=== PATIENT | male | born 1960 | race Caucasian/White ===

== ENCOUNTER 2023-10-06 11:11 | Emergency (ER) | payer OTHER, SELFPAY ==
[2023-10-06 11:19] VITALS: BP 168/94; BMI 25.8
[2023-10-06 11:57] LABS: % Eosinophils 3.4 % (0-6); % Immature Granulocytes 0.2 % (0-0.5); % Lymphocytes 18.9 % (20.5-51.1); % Monocytes 6.9 % (1.7-9.3); % Neutrophils 69.6 % (42.2-75.2); Absolute Basophils 0.1 10^3/uL (0-0.2); Absolute Eosinophils 0.2 10^3/uL (0-0.7); Absolute Monocytes 0.4 10^3/uL (0.1-0.6); Absolute Neutrophils 3.6 10^3/uL (1.4-6.5); Hematocrit 45.3 % (39.0-52.0); Hemoglobin 15.7 g/dL (13.0-18.0); Mean Corp Hgb Conc. 34.7 g/dL (33.0-37.0); Mean Corpuscular Hgb 29.7 pg (27.0-31.0); Mean Corpuscular Volume 85.8 fL (80.0-94.0); Mean Platelet Volume 9.8 fL (7.4-10.4); Nucleated Red Blood Cells % 0 % (-); Platelet Count 182 10^3/uL (130-400); Red Blood Cell Count 5.28 10^6/uL (4.70-6.10); Red Cell Dist. Width 12.8 % (11.5-14.5); White Blood Cell Count 5.2 10^3/uL (4.8-10.8)
[2023-10-06 12:12] LABS: ALT (SGPT) 35 U/L (0-50); AST (SGOT) 43 U/L (17-59); Albumin 4.7 g/dl (3.5-5.0); Alkaline Phosphatase 94 U/L (38-126); Blood Urea Nitrogen 15 mg/dl (9-20); Calcium 10.1 mg/dl (8.4-10.2); Carbon Dioxide 23 mmol/L (22-30); Chloride 105 mmol/L (98-107); Estimated Creatinine Clearance 65 ml/min; Glucose 122 mg/dl (70-99); Potassium 4.5 mmol/L (3.5-5.1); Sodium 137 mmol/L (135-145); Total Bilirubin 0.9 mg/dl (0.2-1.3); Total Protein 7.5 g/dl (6.3-8.2); eGFR > 60.00
[2023-10-06 12:23] LABS: Troponin I < 0.012 ng/ml
--- NOTE | 2023-10-06 12:30 | ED.GENMED ---
History of Present Illness
General
Chief Complaint: Breathing Problem
Source: patient
Exam Limitations: none
Time Seen by Provider: 10/06/23 11:36
Nursing documentation reviewed up to this point in time: agreed with
Travel History
Have you had any contact with someone who has COVID-19?: No
Do you have any symptoms of coronavirus? Fever > 100 degrees, chills, cough, shortness of breath, sore throat, loss of taste or smell, muscle aches, or headache?: Yes
Symptoms:: shortness of breath
History of Present Illness
History of Present Illness:
Patient with history of hypertension, CAD, and bladder cancer, presents to ED secondary to sudden onset of dizziness, palpitations, shortness of breath and sensation of 'passing out', when he he bent down to change his urostomy bag, in standing
position, which he has done repeatedly in the past. Denies chest pain. Denies nausea or vomiting. Denies diaphoresis. Of note, patient was evaluated at primary care's office 2 weeks ago secondary t 'lightheadedness'. Patient was given meclizine
for possible vertigo. Since then, patient has had intermittent lightheaded sensation. Today, patient also reports mild diffuse headache. Denies fever or chills. Denies coughing. Denies recent illness. Denies recent change in diet. Patient
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 His fatigue sensation has not improved despite stopping metoprolol.
Past History
Past History
ED Past Medical History: CAD, Cancer, HTN, Hypercholesterolemia, [place], Psychiatric and Other
ED Past Surgical History: Appendectomy, Cardiac (PTCA with stent 1995), Urological (L kidney and ureter removed for CA, TURP) and Other (bladder ca)
Patient has exhibited threatening behavior?: No
Social History
Tobacco: Former smoker
Alcohol: None
Drug: Marijuana
Personal:
Living: with family
Employment: Employed
Family History
Family History: Other
Review of Systems
Review of Systems
Allergies reviewed?: Yes
All Other Systems: ROS reviewed and negative except as documented in HPI and ROS
Constitutional: Reports no symptoms
EENT: Reports no symptoms
Respiratory: Reports trouble breathing
Cardiac: Reports palpitations
ABD/GI: Reports no symptoms
: Reports no symptoms
Musculoskeletal: Reports no symptoms
Skin: Reports no symptoms
Neurological: Reports dizzy
Phy Exam
Physical Exam
Physical Exam:
Physical Exam
General: mild distress, not acutely ill. afebrile
Head: nc/at. eomi. horizontal nystagmus noted..
Neck: supple. no meningeal signs.
Heart: s1/s2 regular rate and rhythm, no murmur. equal radial pulses.
Lungs: no acute respiratory distress. clear bilaterally
Abdomen: normal bowel sounds. not tender.
Neuro: alert and oriented. no focal neurological deficits
Skin: no rash
Psychiatric: well kept. interactive and cooperative
Extremities: no edema. no calf tenderness.
Scores
Heart Failure Risk
Heart Failure Risk Score: Not Applicable
Course
Orders/Labs/Results
Orders:
Orders
10/06/23 11:19
Electrocardiogram (*1) Urgent
Reason for Study: Chest Pain
EKG- Treatment ONCE
10/06/23 11:24
Complete Blood Count/With Diff Urgent
Comprehensive Metabolic Panel Urgent
Troponin I Urgent
10/06/23 12:25
CT Head W/o Iv Contrast Urgent
Comment:
Reason For Exam: dizziness
10/06/23 12:26
diazePAM [Valium Injection] 2 mg IV NOW STA
10/06/23 12:59
TSH Reflex To Free T4 Urgent
10/06/23 13:55
0.9% Sodium Chloride 250 ml [Nss] 250 ml IV BOLUS
Meclizine [Antivert] 25 mg PO NOW STA
Abnormal Lab Results
10/06/23
11:24
Absolute Lymphs (auto) 1.0 L 10^3/uL
(1.2-3.4)
Lymphocytes % 18.9 L %
(20.5-51.1)
Glucose 122 H mg/dl
(70-99)
10/06/23 11:24
10/06/23 11:24
Vital Signs
Initial and Last Documented VS:
Initial Vital Signs
Temp Pulse Resp BP Pulse Ox
98.2 F 86 16 168/94 100
10/06/23 11:19 10/06/23 11:19 10/06/23 11:19 10/06/23 11:19 10/06/23 11:19
Last Documented Vital Signs
Temp Pulse Resp BP Pulse Ox
98.2 F 67 18 168/94 98
10/06/23 15:24 10/06/23 15:24 10/06/23 15:24 10/06/23 11:19 10/06/23 15:24
MDM/Problems Addressed
MDM/Problems Addressed:
Patient with an unremarkable workup in ED, including blood work, EKG, and a CT head. After treatment, patient reports significant improvement symptoms. Patient is able to ambulate independently with steady gait, without any acute distress. As
such, decision made to discharge patient home, to the care of his family, with recommendation to follow-up with primary care physician and/or referred neurologist for reevaluation. Patient will return to ED with worsening symptoms. Patient will
continue meclizine as needed as an outpatient, but will prescribe short course of Ativan, to be used as needed, on extreme cases, when he feels anxious due to lightheadedness.
*EKG
Interpreted by ED Provider?: Yes
EKG Intrepretation Date: 10/06/23
Interpretation: normal
Heart Rate: 77
Rate: normal
Rhythm: sinus
[place]: normal axis
Interval: normal interval
QRS Pattern: normal QRS
*Critical Care Note
Total Time (30-74mins, 75-104mins- exclusive of procedures): Not Applicable
ED Attending Note
-
Portions of this chart may have been created with voice recognition software.� Occasional wrong word or��sound alike� substitutions may have occurred due to the inherent limitations of voice recognition software.
Discharge Plan
Departure
Patient Disposition: Home (Routine Discharge)
Date of Disposition: 10/06/23
Time of Disposition: 15:20
Patient with high blood pressure during this ER visit?: Yes
Condition: Good
Discharge Problem:
Dizziness
Instructions: Dizziness, Adult ED
Prescriptions:
New
lorazepam [Ativan] 0.5 mg tablet
0.5 mg PO TID PRN (Reason: anxiety) Qty: 10 0RF
meclizine 25 mg tablet
25 mg PO TID PRN (Reason: dizziness) Qty: 20 0RF
No Action
atorvastatin 40 MG tablet
40 mg PO QPM
metoprolol tartrate 25 MG tablet
25 mg PO BID
clonazepam 1 MG tablet
1 mg PO HS
venlafaxine [Effexor XR] 150 MG capsule,extended release 24hr
150 mg PO QPM
albuterol sulfate 1 PUFF HFA aerosol inhaler
2 puff inhalation R Q4HPRN PRN (Reason: SOB)
apixaban [Eliquis] 5 MG tablet
5 mg PO BID Qty: 70 0RF
Rx Instructions:
Take 10mg twice a day for one week, then 5mg twice a day after.
tramadol 50 MG tablet
50 mg PO Q6HPRN PRN (Reason: pain) Qty: 15 0RF
ondansetron 4 MG tablet,disintegrating
4 mg PO TIDPRN PRN (Reason: nausea/vomiting) Qty: 12 0RF
cannabidiol [Epidiolex] 1 UNIT solution
1 unit PO PRN PRN (Reason: pain/anxiety)
levofloxacin [Levaquin] 500 MG tablet
500 mg PO DAILY
Referrals:
Sheron Canchola PA [Family Provider] -
Kel Claire MD [Active] -
Stand Alone Forms: Return to Work
Activity Restrictions/Additional Instructions:
As discussed, please follow-up with your primary care physician and/or referred neurologist for further evaluation and treatment. Please return to ED with worsening symptoms. Your prescription has been sent electronically to [facility] pharmacy in
[place].
Interventions
Interventions:
*Risk Screen - Suicide Last Done: 10/06/23 11:59
*General Assessment Last Done: 10/06/23 11:59
*Neglect/Abuse Screening Last Done: 10/06/23 11:19
ED- Fall Risk Assessment Last Done: 10/06/23 11:59
*ED COVID-19 Vaccine History Last Done: 10/06/23 11:19
*Nursing Disposition Last Done: 10/06/23 15:24
ED- Cardiac Assessment Last Done: 10/06/23 11:59
ED- Pulmonary Assessment Last Done: 10/06/23 11:59
Discharge Date and Time
Discharge Date/Time: 10/06/23 15:25
[2023-10-06] MEDS: VALIUM INJECTION 2 MG IV (13:00)
--- NOTE | 2023-10-06 13:53 | EDRN ---
patient states that dizziness did not improve; Er Doc notified
[2023-10-06 13:54] LABS: TSH Reflex To Free T4 2.51 uIU/ml (0.47-4.68)
[2023-10-06] MEDS: NSS 250 IV (14:21)
[2023-10-06] MEDS: ANTIVERT 25 MG PO (14:22)
== END 2023-10-06 15:25 | disposition home or self-care (01) ==
LOC: EMR 11:11
PROVIDERS: Emergency Medicine; EMERGENCY PHYSICIAN Emergency Medicine; FAMILY PHYSICIAN Physician Assistant Medical
DX: R42 Dizziness and giddiness (principal); I10 Essential (primary) hypertension; I25.10 Atherosclerotic heart disease of native coronary artery without angina pectoris; Z85.51 Personal history of malignant neoplasm of bladder; Z87.891 Personal history of nicotine dependence
CPT/HCPCS: 99285; 96374; 96361; 70450; 80053; 84443; 84484; 85025; 93005

== ENCOUNTER → 2023-10-26 15:40 | Outpatient (REF) | payer OTHER, SELFPAY | LOC: DHCBS MAIN 15:40 | PROVIDERS: ATTENDING PHYSICIAN Internal Medicine Cardiovascular Disease; FAMILY PHYSICIAN Physician Assistant Medical | DX: I25.119 Atherosclerotic heart disease of native coronary artery with unspecified angina pectoris (principal) | CPT/HCPCS: 93306 ==

== ENCOUNTER → 2023-11-02 07:07 | Outpatient (REF) | payer OTHER, SELFPAY | LOC: RCS 07:07 | PROVIDERS: ATTENDING PHYSICIAN Internal Medicine Cardiovascular Disease; FAMILY PHYSICIAN Physician Assistant Medical | DX: I25.119 Atherosclerotic heart disease of native coronary artery with unspecified angina pectoris (principal) | CPT/HCPCS: 78452; 93017; A9500 ==

== ENCOUNTER → 2023-12-20 17:09 | Outpatient (REF) | payer OTHER, SELFPAY | LOC: PAVMRI 17:09 | PROVIDERS: ATTENDING PHYSICIAN Specialist; FAMILY PHYSICIAN Physician Assistant Medical | DX: H93.13 Tinnitus, bilateral (principal) | CPT/HCPCS: 70551 ==

== ENCOUNTER → 2024-01-04 12:33 | Outpatient (REF) | payer OTHER, SELFPAY | LOC: RAD 12:33 | PROVIDERS: ATTENDING PHYSICIAN Physician Assistant Medical | DX: R60.0 Localized edema (principal) | CPT/HCPCS: 93971 ==

== ENCOUNTER 2024-04-12 16:05 | Emergency (ER) | payer OTHER, SELFPAY ==
[2024-04-12 16:07] VITALS: BP 143/83
--- NOTE | 2024-04-12 17:42 | ED.GENMED ---
History of Present Illness
General
Chief Complaint: Male Genito-Urinary Symptoms
Source: patient
Time Seen by Provider: 04/12/24 17:34
History of Present Illness
History of Present Illness:
64-year-old male with past medical history of CAD, hypertension, hyperlipidemia, previous [place], bladder and kidney cancer status post urostomy creation presenting to the emergency department for severe pain overlying the ostomy that radiates towards
his right flank that started gradually yesterday and described to be more mild yesterday but today much more severe. Patient was unable to get to his doctor at [place] and was recommended to come to the ER for further evaluation. He notes no
other associated symptoms with this. Denies any history of similar. He notes that he is still having his normal urostomy output.
Past History
Past History
ED Past Medical History: CAD, Cancer, HTN, Hypercholesterolemia, [place], Psychiatric and Other
ED Past Surgical History: Appendectomy, Cardiac (PTCA with stent 1995), Urological (L kidney and ureter removed for CA, TURP) and Other (bladder ca)
Patient has exhibited threatening behavior?: No
Social History
Tobacco: Former smoker
Alcohol: None
Drug: Marijuana
Personal:
Living: with family
Employment: Employed
Family History
Family History: Other
Review of Systems
Review of Systems
All Other Systems: ROS reviewed and negative except as documented in HPI and ROS
Phy Exam
Physical Exam
Physical Exam:
GENERAL: Alert , in no apparent distress but does appear quite uncomfortable
EYE: clear conjunctiva b/l
HEAD: NCAT
ENT: o/p clr, mmm.
CARDIAC: Regular rate and rhythm .
LUNGS: Clear breath sounds bilaterally, no acute respiratory distress, no wheezes/rales/rhonchi
ABDOMEN: Soft, without focal tenderness, no r/g, no cvat, urostomy appears without any sign of surrounding infection. There is significant tenderness overlying the urostomy and just lateral to this in the right mid abdomen.
NEUROLOGICAL: Alert and oriented
SKIN: Warm and dry, skin intact.
MUSCULOSKELETAL: No edema, well perfused.
PSYCH: Normal and appropriate interaction.
Scores
Heart Failure Risk
Heart Failure Risk Score: Not Applicable
Heart Score for Chest Pain Patients
STEMI patient?: Not applicable
Withdrawal Assessment of Alcohol
Withdrawal Assessment Completed?: Not applicable
Course
Orders/Labs/Results
Orders:
Orders
04/12/24 17:43
CT Abd/pel W Iv And Oral Contr Urgent
Comment:
Reason For Exam: pain at urostomy, radiates to right flank
Iohexol [Omnipaque] See Protocol PO NOW STA
04/12/24 17:48
HYDROmorphone [Dilaudid] 0.5 mg IV NOW STA
04/12/24 18:13
Complete Blood Count/With Diff Urgent
Comprehensive Metabolic Panel Urgent
Lipase Urgent
Urinalysis Reflex To Culture Urgent
Date Specimen was Collected: 04/12/24
Time Specimen was Collected: 18:11
Urine Microscopic Reflex Cult Urgent
Urine Culture Urgent
SHAV[place] Source: U
Specimen Description:
Date Specimen was Collected: 04/12/24
Time Specimen was Collected: 18:11
04/12/24 19:08
HYDROmorphone [Dilaudid] 0.5 mg IV NOW STA
04/12/24 21:41
Ketorolac [Toradol] 30 mg IV NOW STA
Abnormal Lab Results
04/12/24
18:13
Ur Occult Blood Reflex 1+ A
(Negative)
Urine RBC 7-10 A /HPF
(0-2)
Urine WBC (Reflex) 11-15 A /HPF
(0-5)
Urine Bacteria (Reflex) Few A
(Negative)
04/12/24 18:13
04/12/24 18:13
Vital Signs
Initial and Last Documented VS:
Initial Vital Signs
Temp Pulse Resp BP Pulse Ox
97.8 F 70 16 143/83 99
04/12/24 16:07 04/12/24 16:07 04/12/24 16:07 04/12/24 16:07 04/12/24 16:07
Last Documented Vital Signs
Temp Pulse Resp BP Pulse Ox
97.8 F 70 16 143/83 99
04/12/24 16:07 04/12/24 16:07 04/12/24 16:07 04/12/24 16:07 04/12/24 16:07
MDM/Problems Addressed
Differential Diagnosis Includes:
Renal/ureteral colic, underlying infectious etiology, malignancy, pancreatitis, appendicitis
MDM/Problems Addressed:
64-year-old male presenting to the emergency department for evaluation of pain overlying the urostomy that started gradually yesterday, today much more severe. No other associated symptoms and reports normal urostomy output. Patient appears in
considerable pain. He is otherwise hemodynamically stable however. Will order CT of the abdomen pelvis to further evaluate. Urinalysis ordered although I do suspect there is likely colonization given this is a chronic urostomy. Dilaudid ordered
for pain control.
*Pulse Oximetry
Patient hypoxic: no
*Critical Care Note
Total Time (30-74mins, 75-104mins- exclusive of procedures): Not Applicable
Data Reviewed
Review of Other/Old Records Reveals: Labs, Records and Radiology Studies
Source: patient
Comment
Comment:
1909 - on re-eval patient notes some but minimal improvement of pain. Still 04/08. Additional 0.5mg dilaudid IV ordered. Pending CT scan
Patient Management
Social determinants of health affecting care: Strong social support
Discussion with other providers: Youth Coordinator
Escalation/DeEscalation of care consider admission/obs:
Patient CT scan shows the following:
Stable ovoid opacity within the posterior and inferior aspect of the right lower lobe of the lung, compatible with benign area of chronic scarring or mucoid impaction.
Status post cystectomy. Status post left nephrectomy.
Small right-sided renal cysts. No evidence for urinary tract calculus. No significant CT abnormality of the urostomy.
Patient's labs are largely unremarkable. He is afebrile, no leukocytosis and CAT scan shows chronic findings only. Question urinary tract infection. There is no nitrites or leukocytes however there are 11-15 WBCs on the differential. Had
extensive conversation with patient and about potentially treating this. I did prescribe Augmentin however patient will wait to take this until culture is completed. They will contact me on Wednesday for these results. Prescription for Vicodin
was sent to the pharmacy to be used as needed. Patient noted pain started to come back slightly. Prior to discharge we will give a dose of Toradol. Patient will contact his oncologist, Dr. Bullock, from [place] in the morning. Return
precautions discussed.
Just prior to discharge I did speak with urology fellow at [place] who contacted the ER and discussed results with him. He is in agreement with our plan.
ED Attending Note
-
Portions of this chart may have been created with voice recognition software.� Occasional wrong word or��sound alike� substitutions may have occurred due to the inherent limitations of voice recognition software.
Discharge Plan
Departure
Patient Disposition: Home (Routine Discharge)
Date of Disposition: 04/12/24
Time of Disposition: 21:37
Patient with high blood pressure during this ER visit?: Yes
Discharge Problem:
Abdominal pain, History of urostomy
Instructions: Abdominal Pain
Prescriptions:
New
hydrocodone-acetaminophen 5-300 mg tablet
1 tab PO BID PRN (Reason: Pain) Qty: 8 0RF
amoxicillin-pot clavulanate 875-125 mg tablet
1 tab PO BID 10 Days Qty: 20 0RF
No Action
atorvastatin 40 MG tablet
40 mg PO QPM
metoprolol tartrate 25 MG tablet
25 mg PO BID
clonazepam 1 MG tablet
1 mg PO HS
venlafaxine [Effexor XR] 150 MG capsule,extended release 24hr
150 mg PO QPM
albuterol sulfate 1 PUFF HFA aerosol inhaler
2 puff inhalation R Q4HPRN PRN (Reason: SOB)
apixaban [Eliquis] 5 MG tablet
5 mg PO BID Qty: 70 0RF
Rx Instructions:
Take 10mg twice a day for one week, then 5mg twice a day after.
tramadol 50 MG tablet
50 mg PO Q6HPRN PRN (Reason: pain) Qty: 15 0RF
ondansetron 4 MG tablet,disintegrating
4 mg PO TIDPRN PRN (Reason: nausea/vomiting) Qty: 12 0RF
cannabidiol [Epidiolex] 1 UNIT solution
1 unit PO PRN PRN (Reason: pain/anxiety)
levofloxacin [Levaquin] 500 MG tablet
500 mg PO DAILY
lorazepam [Ativan] 0.5 mg tablet
0.5 mg PO TID PRN (Reason: anxiety) Qty: 10 0RF
meclizine 25 mg tablet
25 mg PO TID PRN (Reason: dizziness) Qty: 20 0RF
Referrals:
Sheron Canchola PA [Family Provider] -
Interventions
Interventions:
*Risk Screen - Suicide Last Done: 04/12/24 16:07
*Neglect/Abuse Screening Last Done: 04/12/24 16:07
Discharge Date and Time
Print Language: UGANDAN
[2024-04-12] MEDS: DILAUDID 0.5 MG IV ×2 (18:09→19:17)
[2024-04-12] MEDS: OMNIPAQUE 50 ML PO (18:19)
[2024-04-12 18:23] LABS: % Basophils 1.2 % (0-2); % Eosinophils 2.7 % (0-6); % Immature Granulocytes 0.2 % (0-0.5); % Lymphocytes 21.9 % (20.5-51.1); % Monocytes 8.6 % (1.7-9.3); % Neutrophils 65.4 % (42.2-75.2); Absolute Basophils 0.1 10^3/uL (0-0.2); Absolute Eosinophils 0.2 10^3/uL (0-0.7); Absolute Lymphocytes 1.3 10^3/uL (1.2-3.4); Absolute Monocytes 0.5 10^3/uL (0.1-0.6); Absolute Neutrophils 3.9 10^3/uL (1.4-6.5); Hematocrit 42.7 % (39.0-52.0); Mean Corp Hgb Conc. 35.1 g/dL (33.0-37.0); Mean Corpuscular Hgb 29.8 pg (27.0-31.0); Mean Corpuscular Volume 84.7 fL (80.0-94.0); Mean Platelet Volume 9.3 fL (7.4-10.4); Nucleated Red Blood Cells % 0 % (-); Platelet Count 176 10^3/uL (130-400); Red Blood Cell Count 5.04 10^6/uL (4.70-6.10)
[2024-04-12 18:24] LABS: Urine Albumin Negative (Neg - Trace); Urine Bilirubin Negative (Negative); Urine Character Clear (Clear); Urine Color Yellow; Urine Glucose Negative (Negative); Urine Ketone Negative (Negative); Urine Leukocyte Negative (Negative); Urine Nitrite Negative (Negative); Urine Occult Blood 1+ (Negative); Urine Urobilinogen Negative (Neg - 1+)
[2024-04-12 18:34] LABS: ALT (SGPT) 30 U/L (0-50); AST (SGOT) 37 U/L (17-59); Albumin 4.6 g/dl (3.5-5.0); Alkaline Phosphatase 96 U/L (38-126); Blood Urea Nitrogen 16 mg/dl (9-20); Calcium 10.1 mg/dl (8.4-10.2); Carbon Dioxide 26 mmol/L (22-30); Chloride 103 mmol/L (98-107); Glucose 86 mg/dl (70-99); Lipase 163 U/L (23-300); Potassium 4.3 mmol/L (3.5-5.1); Sodium 136 mmol/L (135-145); Total Bilirubin 0.6 mg/dl (0.2-1.3); Total Protein 7.2 g/dl (6.3-8.2); eGFR > 60.00
[2024-04-12 18:43] LABS: Urine Bacteria Few (Negative)
[2024-04-12] MEDS: TORADOL 30 MG IV (22:08)
== END 2024-04-12 22:16 | disposition home or self-care (01) ==
LOC: EMR 16:05
PROVIDERS: Physician Assistant Medical; EMERGENCY PHYSICIAN Emergency Medicine; FAMILY PHYSICIAN Physician Assistant Medical
DX: R10.9 Unspecified abdominal pain (principal); I25.10 Atherosclerotic heart disease of native coronary artery without angina pectoris; I10 Essential (primary) hypertension; E78.00 Pure hypercholesterolemia, unspecified; Z93.6 Other artificial openings of urinary tract status; I25.2 Old myocardial infarction; Z85.528 Personal history of other malignant neoplasm of kidney; Z85.51 Personal history of malignant neoplasm of bladder; Z95.5 Presence of coronary angioplasty implant and graft; Z90.5 Acquired absence of kidney; Z87.891 Personal history of nicotine dependence; Z79.01 Long term (current) use of anticoagulants; Z88.1 Allergy status to other antibiotic agents; Z88.2 Allergy status to sulfonamides; Z91.048 Other nonmedicinal substance allergy status
CPT/HCPCS: 99285; 96375; 96374; 96376; 74177; 80053; 81003; 81015; 83690; 85025; 87086; Q9967

== ENCOUNTER → 2024-05-24 13:22 | Outpatient (REF) | payer OTHER, SELFPAY | LOC: RAD 13:22 | PROVIDERS: ATTENDING PHYSICIAN Internal Medicine Cardiovascular Disease; FAMILY PHYSICIAN Physician Assistant Medical | DX: I10 Essential (primary) hypertension (principal); H93.13 Tinnitus, bilateral | CPT/HCPCS: 93880 ==

== ENCOUNTER 2024-07-31 16:28 | Emergency (ER) | payer OTHER, SELFPAY ==
[2024-07-31 16:35] VITALS: BP 121/89
[2024-07-31 16:57] LABS: % Basophils 0.5 % (0-2); % Eosinophils 1.1 % (0-6); % Immature Granulocytes 0.3 % (0-0.5); % Lymphocytes 10.2 % (20.5-51.1); % Monocytes 10.1 % (1.7-9.3); % Neutrophils 77.8 % (42.2-75.2); Absolute Eosinophils 0.1 10^3/uL (0-0.7); Absolute Lymphocytes 0.7 10^3/uL (1.2-3.4); Absolute Monocytes 0.7 10^3/uL (0.1-0.6); Absolute Neutrophils 5.1 10^3/uL (1.4-6.5); Hematocrit 47.6 % (39.0-52.0); Hemoglobin 16.1 g/dL (13.0-18.0); Mean Corp Hgb Conc. 33.8 g/dL (33.0-37.0); Mean Corpuscular Volume 85.6 fL (80.0-94.0); Mean Platelet Volume 8.9 fL (7.4-10.4); Nucleated Red Blood Cells % 0 % (-); Platelet Count 179 10^3/uL (130-400); Red Blood Cell Count 5.56 10^6/uL (4.70-6.10); Red Cell Dist. Width 13.2 % (11.5-14.5); White Blood Cell Count 6.5 10^3/uL (4.8-10.8)
[2024-07-31 17:10] LABS: ALT (SGPT) 34 U/L (0-50); AST (SGOT) 43 U/L (17-59); Albumin 4.6 g/dl (3.5-5.0); Alkaline Phosphatase 94 U/L (38-126); Blood Urea Nitrogen 21 mg/dl (9-20); Calcium 9.3 mg/dl (8.4-10.2); Carbon Dioxide 29 mmol/L (22-30); Chloride 98 mmol/L (98-107); Glucose 105 mg/dl (70-99); Lipase 290 U/L (23-300); Potassium 4.7 mmol/L (3.5-5.1); Sodium 136 mmol/L (135-145); Total Bilirubin 0.7 mg/dl (0.2-1.3); Total Protein 7.4 g/dl (6.3-8.2); eGFR > 60.00
--- NOTE | 2024-07-31 20:20 | ED.GENMED ---
History of Present Illness
General
Chief Complaint: Abdominal Symptoms
Source: patient
Exam Limitations: none
Time Seen by Provider: 07/31/24 19:56
Nursing documentation reviewed up to this point in time: agreed with
History of Present Illness
History of Present Illness:
Patient is a 64-year-old male who presents to the ER for evaluation. Patient has a history of bladder cancer with urostomy and left nephrectomy and ureter removed in 2015. Patient does have other medical issues including CAD DVT hypertension
hyperlipidemia [place] with cardiac stent. Patient reports for the past several days he has had nausea vomiting diarrhea believes he has a virus. He is not able to keep any liquids down.
He is concerned because he has 1 kidney that he is dehydrated. He still feels nauseous. In addition he has significant anxiety and normally takes lorazepam at night and has not been able to take this because of vomiting.
He denies any actual abdominal pain fever chills.
Past History
Past History
ED Past Medical History: CAD, Cancer, HTN, Hypercholesterolemia, [place], Psychiatric and Other
ED Past Surgical History: Appendectomy, Cardiac (PTCA with stent 1995), Urological (L kidney and ureter removed for CA, TURP) and Other (bladder ca)
Patient has exhibited threatening behavior?: No
Social History
Tobacco: Former smoker
Alcohol: None
Drug: Marijuana
Personal:
Living: with family
Employment: Employed
Family History
Family History: Other
Review of Systems
Review of Systems
Allergies reviewed?: Yes
All Other Systems: ROS reviewed and negative except as documented in HPI and ROS
Constitutional: Reports no symptoms; Denies fever, fatigue or chills
EENT: Reports no symptoms
Respiratory: Reports no symptoms
Cardiac: Reports no symptoms
ABD/GI: Reports nausea, vomiting and diarrhea; Denies abdominal pain
: Reports no symptoms
Musculoskeletal: Reports no symptoms
Skin: Reports no symptoms
Neurological: Reports no symptoms
Psychiatric: Reports no symptoms
Phy Exam
General Physical Exam
General Presentation: no apparent distress
General age: appears stated age
General Skin: warm and dry
General Habitus: normal
General Mental: alert
General Hydration: dry mucous membranes
Cardiovascular Exam
Cardiovascular Exam: regular rate/rhythm, no murmur and normal peripheral pulses
Pulmonary Exam
Pulmonary Exam: lungs clear and no respiratory distress
Genitourinary Exam Male
Exam Male: other (Nephrostomy tube draining clear yellow urine)
Neurological Exam
Neurological Exam: alert and oriented x3
Musculoskeletal Exam
Musculoskeletal Exam: full ROM
Skin Exam
Skin Exam: normal color and warm/dry
Psychiatric Exam
Psychiatric Exam: normal mood/affect
Course
Orders/Labs/Results
Orders:
Orders
07/31/24 16:47
Complete Blood Count/With Diff Urgent
Comprehensive Metabolic Panel Urgent
Lipase Urgent
07/31/24 20:17
IV Insert/Care/Rem.- Treatment PRN
0.9% Sodium Chloride 1000 ml [Nss] 1,000 ml IV BOLUS
Ondansetron Injectable [Zofran] 4 mg IV NOW STA
07/31/24 20:20
Famotidine [Pepcid] 20 mg IV NOW STA
Lorazepam [Ativan] 0.5 mg IV NOW STA
07/31/24 21:12
Urinalysis Reflex To Culture Urgent
Date Specimen was Collected: 07/31/24
Time Specimen was Collected: 21:06
Urine Microscopic Reflex Cult Urgent
Urine Culture Urgent
SH[place] Source: U
Specimen Description:
Date Specimen was Collected: 07/31/24
Time Specimen was Collected: 21:06
07/31/24 21:22
0.9% Sodium Chloride 500 ml [Nss] 500 ml IV BOLUS
07/31/24 21:25
Vital Signs- Treatment ONCE
Frequency: Once
Abnormal Lab Results
07/31/24 07/31/24
16:47 21:12
Absolute Lymphs (auto) 0.7 L 10^3/uL
(1.2-3.4)
Absolute Monos (auto) 0.7 H 10^3/uL
(0.1-0.6)
Neutrophils % 77.8 H %
(42.2-75.2)
Lymphocytes % 10.2 L %
(20.5-51.1)
Monocytes % 10.1 H %
(1.7-9.3)
BUN 21 H mg/dl
(9-20)
Glucose 105 H mg/dl
(70-99)
Ur Occult Blood Reflex 3+ A
(Negative)
Urine Nitrite (Reflex) Positive A
(Negative)
Leukocyte Esterase Rfl 1+ A
(Negative)
Urine RBC 3-6 A /HPF
(0-2)
Urine Bacteria (Reflex) Few A
(Negative)
Urine Albumin (Reflex) 1+ A
(Neg - Trace)
07/31/24 16:47
07/31/24 16:47
Vital Signs
Initial and Last Documented VS:
Initial Vital Signs
Temp Pulse Resp BP Pulse Ox
98.6 F 98 20 121/89 98
07/31/24 16:35 07/31/24 16:35 07/31/24 16:35 07/31/24 16:35 07/31/24 16:35
Last Documented Vital Signs
Temp Pulse Resp BP Pulse Ox
98.6 F 81 17 95/60 98
07/31/24 16:35 07/31/24 22:05 07/31/24 22:05 07/31/24 22:05 07/31/24 22:05
MDM/Problems Addressed
MDM/Problems Addressed:
64 Yr male presents to the ER with nausea vomiting diarrhea for the past 2 days. He was concerned about dehydration because he only has 1 kidney. He has not been able to drink a lot of fluids. He denies any abdominal pain. No other sick
contacts at home.
Pt presents awake alert in no acute distress nontoxic-appearing afebrile stable white count and normal chemistries. BUN 21 creatinine 1.2.
Patient denies any fever/chills. Urine is clear draining from urostomy bag does not appear infected but will check urine. Patient was hydrated here with fluids and also given Zofran and Pepcid. He was given small dose of Ativan he does take
lorazepam for sleep every night and for the past several days with vomiting has not been take that. On reexam he is feeling much better tolerating oral fluids will give small additional 500 cc of fluid bolus and plan for d.c home. Will hold off on
zofran as pt is on effexor. Patient has not had any episodes of diarrhea here in the ER abdomen soft nontender. Symptoms consistent with gastroenteritis
Urinalysis reviewed will hold off on antibiotics. + Chronic urostomy afebrile abdomen soft nontender catheter draining normally
*Critical Care Note
Total Time (30-74mins, 75-104mins- exclusive of procedures): Not Applicable
ED Attending Note
-
Portions of this chart may have been created with voice recognition software.� Occasional wrong word or��sound alike� substitutions may have occurred due to the inherent limitations of voice recognition software.
Discharge Plan
Departure
Patient Disposition: Home (Routine Discharge)
Date of Disposition: 07/31/24
Time of Disposition: 22:11
Patient with high blood pressure during this ER visit?: No
Condition: Fair
Covid-19: Not Applicable
Discharge Problem:
Nausea & vomiting, Diarrhea
Instructions: Diarrhea in teens and adults, Nausea and Vomiting, Adult (DC)
Prescriptions:
New
ondansetron 4 mg tablet,disintegrating
4 mg PO Q8H PRN (Reason: nausea and vomiting) Qty: 10 0RF
No Action
atorvastatin 40 MG tablet
40 mg PO QPM
metoprolol tartrate 25 MG tablet
25 mg PO BID
clonazepam 1 MG tablet
1 mg PO HS
venlafaxine [Effexor XR] 150 MG capsule,extended release 24hr
150 mg PO QPM
albuterol sulfate 1 PUFF HFA aerosol inhaler
2 puff inhalation R Q4HPRN PRN (Reason: SOB)
apixaban [Eliquis] 5 MG tablet
5 mg PO BID Qty: 70 0RF
Rx Instructions:
Take 10mg twice a day for one week, then 5mg twice a day after.
tramadol 50 MG tablet
50 mg PO Q6HPRN PRN (Reason: pain) Qty: 15 0RF
ondansetron 4 MG tablet,disintegrating
4 mg PO TIDPRN PRN (Reason: nausea/vomiting) Qty: 12 0RF
cannabidiol [Epidiolex] 1 UNIT solution
1 unit PO PRN PRN (Reason: pain/anxiety)
levofloxacin [Levaquin] 500 MG tablet
500 mg PO DAILY
lorazepam [Ativan] 0.5 mg tablet
0.5 mg PO TID PRN (Reason: anxiety) Qty: 10 0RF
meclizine 25 mg tablet
25 mg PO TID PRN (Reason: dizziness) Qty: 20 0RF
hydrocodone-acetaminophen 5-300 mg tablet
1 tab PO BID PRN (Reason: Pain) Qty: 8 0RF
amoxicillin-pot clavulanate 875-125 mg tablet
1 tab PO BID 10 Days Qty: 20 0RF
Activity Restrictions/Additional Instructions:
As discussed clear fluids for the next 24 hours followed by bland solid food
Follow-up with family doctor in the next of days for reevaluation.
return if any worsening of symptoms.
Interventions
Interventions:
*Risk Screen - Suicide Last Done: 07/31/24 16:35
*General Assessment Last Done: 07/31/24 16:35
*Neglect/Abuse Screening Last Done: 07/31/24 16:35
*Nursing Disposition Last Done: 07/31/24 22:34
ZH-Oeuakj-Goezcwgeaj Assessment Last Done: 07/31/24 20:41
Discharge Date and Time
Discharge Date/Time: 07/31/24 22:35
Print Language: BANGLADESHI
[2024-07-31] MEDS: ZOFRAN 4 MG IV (20:37)
[2024-07-31] MEDS: NSS 1000 IV (20:37)
[2024-07-31] MEDS: PEPCID 20 MG IV (20:37)
[2024-07-31] MEDS: ATIVAN 0.5 MG IV (20:37)
[2024-07-31 20:40] VITALS: BMI 26.8
[2024-07-31 21:27] LABS: Urine Albumin 1+ (Neg - Trace); Urine Bilirubin Negative (Negative); Urine Character Slightly Cloudy (Clear); Urine Color Yellow; Urine Glucose Negative (Negative); Urine Ketone Negative (Negative); Urine Leukocyte 1+ (Negative); Urine Nitrite Positive (Negative); Urine Occult Blood 3+ (Negative); Urine Urobilinogen Negative (Neg - 1+)
[2024-07-31] MEDS: NSS 500 IV (21:30)
[2024-07-31 21:33] VITALS: BP 126/71
[2024-07-31 21:38] LABS: Urine Mucus Few; Urine Squamous Cell 0-2 /LPF (Few)
[2024-07-31 21:39] LABS: Urine Bacteria Few (Negative)
[2024-07-31 22:05] VITALS: BP 95/60
== END 2024-07-31 22:35 | disposition home or self-care (01) ==
LOC: EMR 16:28
PROVIDERS: Emergency Medicine; Nurse Practitioner; EMERGENCY PHYSICIAN Emergency Medicine; FAMILY PHYSICIAN Physician Assistant Medical
DX: R19.7 Diarrhea, unspecified (principal); R11.2 Nausea with vomiting, unspecified; I25.10 Atherosclerotic heart disease of native coronary artery without angina pectoris; I10 Essential (primary) hypertension; E78.00 Pure hypercholesterolemia, unspecified; F41.9 Anxiety disorder, unspecified; I25.2 Old myocardial infarction; Z93.6 Other artificial openings of urinary tract status; Z79.899 Other long term (current) drug therapy; Z79.01 Long term (current) use of anticoagulants; Z95.5 Presence of coronary angioplasty implant and graft; Z90.5 Acquired absence of kidney; Z85.528 Personal history of other malignant neoplasm of kidney; Z85.51 Personal history of malignant neoplasm of bladder; Z87.891 Personal history of nicotine dependence; Z86.718 Personal history of other venous thrombosis and embolism; Z88.1 Allergy status to other antibiotic agents; Z88.2 Allergy status to sulfonamides; Z91.048 Other nonmedicinal substance allergy status
CPT/HCPCS: 99284; 96374; 96375 ×2; 96361 ×2; 80053; 81003; 81015; 83690; 85025; 87077; 87086

== ENCOUNTER → 2024-11-28 13:04 | Outpatient (REF) | payer OTHER, SELFPAY | LOC: RAD 13:04 | PROVIDERS: ATTENDING PHYSICIAN Internal Medicine Cardiovascular Disease; FAMILY PHYSICIAN Physician Assistant Medical | DX: M79.604 Pain in right leg (principal) | CPT/HCPCS: 93922; 93925 ==

== ENCOUNTER 2025-04-27 11:52 | Emergency (ER) | payer OTHER, SELFPAY ==
[2025-04-27 11:59] VITALS: BP 170/97
[2025-04-27 12:12] LABS: Hematocrit 45.2 % (39.0-52.0); Hemoglobin 15.3 g/dL (13.0-18.0); Mean Corp Hgb Conc. 33.8 g/dL (33.0-37.0); Mean Corpuscular Volume 85.6 fL (80.0-94.0); Nucleated Red Blood Cells % 0 % (-); Platelet Count 180 10^3/uL (130-400); Red Cell Dist. Width 13.0 % (11.5-14.5)
[2025-04-27 12:22] LABS: INR 0.98; PT 13.2 Sec (11.4-14.6)
[2025-04-27 12:36] LABS: ALT (SGPT) 41 U/L (0-50); AST (SGOT) 38 U/L (17-59); Albumin 4.7 g/dl (3.5-5.0); Alkaline Phosphatase 87 U/L (38-126); Blood Urea Nitrogen 15 mg/dl (9-20); Calcium 9.6 mg/dl (8.4-10.2); Carbon Dioxide 30 mmol/L (22-30); Chloride 102 mmol/L (98-107); Glucose 126 mg/dl (70-99); Potassium 4.5 mmol/L (3.5-5.1); Sodium 138 mmol/L (135-145); Total Protein 7.5 g/dl (6.3-8.2); eGFR > 60.00
[2025-04-27 12:46] LABS: Troponin I < 0.012 ng/ml
--- NOTE | 2025-04-27 16:12 | ED.GENMED ---
History of Present Illness
General
Chief Complaint: Chest Pain
Time Seen by Provider: 04/27/25 16:12
History of Present Illness
History of Present Illness:
FOCUSED PAST MEDICAL HISTORY
- The patient has a history of CAD, has had DVT, high blood pressure, GERD
REVIEW OF OLD RECORDS
- I reviewed records, the patient was seen in the emergency department with diarrhea last July, and was diagnosed with a DVT in 2021. No recent hospital admissions.
Note:
CHIEF COMPLAINT(S)
Palpitations and dizziness.
HISTORY OF PRESENT ILLNESS
The patient is a 65-year-old male who presented to the emergency department with complaints of palpitations described as fluttering in the chest and dizziness. These symptoms have been present intermittently over the past three days. The patient
noted that his blood pressure, which is usually consistent around 120 mmHg systolic, has elevated to 150-160 mmHg and reached 172 mmHg most recently. He did not experience chest pressure or tightness, but reported discomfort around the left lower
rib cage area coinciding with the palpitations.
The patient has a history of an acute myocardial infarction at age 33, for which a stent was placed. He did not present with shortness of breath or symptoms comparable to his prior myocardial infarction. Blood work, including a troponin test,
returned normal results, indicating no signs of myocardial infarction. An electrocardiogram showed a right bundle branch block, which was not previously documented in the facility's system but was explained as a common finding without serious
implications. He states that his beta-pratibha, Toprol 25 mg daily was discontinued in the past by his cognos, Dr. Martin.
PAST MEDICAL AND SURIGICAL HISTORY
History of myocardial infarction at age 33 with subsequent stenting.
CHRONIC MEDICAL CONDITIONS SIGNIFICANTLY AFFECTING CARE
History of myocardial infarction with placement of a coronary stent.
SOCIAL HISTORY
The patient communicated having been taken off of Metoprolol by their physician due to low blood pressure readings previously.
PHYSICAL EXAM
General: Alert, no acute distress.
Skin: Warm, dry.
Head: Normocephalic, atraumatic.
Neck: Supple, trachea midline.
Eye, Ears, Nose, Mouth, and Throat: Oral mucosa moist.
Cardiovascular: Normal peripheral perfusion, no edema.
Respiratory: Non-labored respirations.
Gastrointestinal: Abdomen nondistended.
Back: Normal range of motion, normal alignment.
Musculoskeletal: Normal range of motion, normal strength.
Neurological: Alert and oriented to person, place, time, and situation, no focal neurological deficit observed. Normal kwlmbw-li-buhi testing. Excellent strength in all extremities.
Psychiatric: Cooperative, appropriate mood & affect.
PROBLEM LIST
- Acute:
- Palpitations
- Dizziness
- Chronic:
- Coronary artery disease status post-stenting
PLAN
- Keep the patient on cardiac monitoring to evaluate for potential arrhythmias.
- Prescribe Metoprolol 25 mg, with the decision to initiate based on the patients preference and blood pressure levels over the upcoming days. The prescription will be sent to the patients pharmacy.
- Follow up with the patients primary care or cognos, Dr. Martin, particularly if symptoms persist or worsen.
DIFFERENTIAL DIAGNOSIS
The Differential Diagnosis includes, in no particular order and is not limited to:
- Atrial fibrillation
- Premature ventricular contractions
- Supraventricular tachycardia
- Hypertension-related symptoms
- Anxiety or stress-related palpitations
- Electrolyte imbalance
- Transient ischemic attack
- Vertigo
- Heart failure
- Medication-related side effects
EKG
- Sinus 90, right bundle branch block which is new in comparison to 10/06/2023
LABS
- CBC and chemistries unremarkable, troponin less than 0.012
UPDATE
-The patient has remained sinus on the monitor. We talked about resuming a beta-pratibha. However, the patient is likely going to have a community development technician as an outpatient starting this Wednesday. Will give prescription.
SUMMARY OF ENCOUNTER
SUMMARY OF ENCOUNTER
The patient, a 65-year-old male, was seen in the emergency department with complaints of palpitations and dizziness, coupled with elevated blood pressure readings over the past three days. The patient has a history of coronary artery disease with
stenting. There were no abnormal findings on cardiac monitoring during the emergency visit. The decision was made to offer a prescription for Metoprolol for potential blood pressure management, though the patient can choose to wait and see if
symptoms persist before starting the medication. The patient was advised to follow up with Dr. Moe for further evaluation, including consideration of obtaining a cardiac event monitor for continuous heart rhythm assessment.
ASSESSMENT
The patient presented with palpitations and dizziness likely related to intermittent hypertension and coronary artery disease history. The consideration of starting beta-pratibha therapy was discussed.
PLAN
The patient will be provided with a prescription for Metoprolol 25 mg to manage potential hypertension-related symptoms. It is left up to the patient to decide whether to initiate the medication based on future blood pressure readings and
consultation with his cognos or primary care provider. The patient was advised to follow up with Dr. Moe to consider further monitoring and evaluation.
PATIENT EDUCATION AND COUNSELING
The patient was educated on the potential need for ongoing blood pressure management, the importance of continuous cardiac monitoring, and was informed about the option to start Metoprolol if symptoms persist. The patient was also counseled on the
importance of follow-up with his cognos for comprehensive evaluation and management.
FOLLOW-UP INSTRUCTIONS
Follow up with Dr. Moe, the patients cognos, for further evaluation of symptoms and potential cardiac monitoring.
MEDICATION RECONCILIATION
A prescription for Metoprolol 25 mg was provided to the patient.
MEDICAL DECISION MAKING
- Number and Complexity of Problems Addressed: Chronic conditions affecting care include a history of myocardial infarction with coronary stenting. Differential diagnosis includes atrial fibrillation, premature ventricular contractions,
supraventricular tachycardia, hypertension-related symptoms, anxiety or stress-related palpitations, electrolyte imbalance, transient ischemic attack, vertigo, heart failure, and medication-related side effects.
- Data:
Category 1: Independent review of cardiac monitoring showed no abnormalities.
Category 3: Discussion of management involving offering Metoprolol and follow-up with Dr. Moe for continuous heart monitoring.
- Risk: Prescription medication was prescribed for managing hypertension. Consideration of Admission/Observation: Escalation of care including admission/observation was considered given the complexity and risk of the patients presenting complaint
and underlying comorbidities. However, ultimately it was deemed safe for the patient to manage as an outpatient with close follow-up.
DIAGNOSIS
1. Palpitations (ICD-10: R00.2)
2. Dizziness (ICD-10: R42)
3. Hypertension (ICD-10: I10)
4. Coronary artery disease, status post-stenting (ICD-10: I25.10)
Past History
Past History
ED Past Medical History: CAD, Cancer, HTN, Hypercholesterolemia, NM, Psychiatric and Other
ED Past Surgical History: Appendectomy, Cardiac (PTCA with stent 1995), Urological (L kidney and ureter removed for CA, TURP) and Other (bladder ca)
Patient has exhibited threatening behavior?: No
Social History
Tobacco: Former smoker
Alcohol: None
Drug: Marijuana
Personal:
Living: with family
Employment: Employed
Family History
Family History: Other
Phy Exam
Physical Exam
Physical Exam:
See HPI
Scores
Heart Score for Chest Pain Patients
STEMI patient?: Not applicable
Course
Orders/Labs/Results
Orders:
Orders
04/27/25 11:53
Electrocardiogram (*1) Urgent
Reason for Study: Chest Pain
EKG- Treatment ONCE
04/27/25 12:05
Complete Blood Count/With Diff Urgent
Comprehensive Metabolic Panel Urgent
Prothrombin Time Urgent
Troponin I Urgent
Abnormal Lab Results
04/27/25
12:05
Absolute Lymphs (auto) 1.1 L 10^3/uL
(1.2-3.4)
Lymphocytes % 16.9 L %
(20.5-51.1)
Glucose 126 H mg/dl
(70-99)
04/27/25 12:05
04/27/25 12:05
Vital Signs
Initial and Last Documented VS:
Initial Vital Signs
Temp Pulse Resp BP Pulse Ox
36.4 C 102 18 170/97 98
04/27/25 11:59 04/27/25 11:59 04/27/25 11:59 04/27/25 11:59 04/27/25 11:59
Last Documented Vital Signs
Temp Pulse Resp BP Pulse Ox
36.4 C 102 18 170/97 98
04/27/25 11:59 04/27/25 11:59 04/27/25 11:59 04/27/25 11:59 04/27/25 16:14
*Pulse Oximetry
SaO2: 98
Oxygen Mode of Delivery: Room air
Patient hypoxic: no
*Critical Care Note
Total Time (30-74mins, 75-104mins- exclusive of procedures): Not Applicable
ED Attending Note
-
Portions of this chart may have been created with voice recognition software.� Occasional wrong word or��sound alike� substitutions may have occurred due to the inherent limitations of voice recognition software.
Discharge Plan
Departure
Prescriptions:
New
metoprolol succinate [Toprol XL] 25 mg tablet extended release 24 hr
25 mg PO DAILY Qty: 30 0RF
No Action
atorvastatin 40 MG tablet
40 mg PO QPM
metoprolol tartrate 25 MG tablet
25 mg PO BID
clonazepam 1 MG tablet
1 mg PO HS
venlafaxine [Effexor XR] 150 MG capsule,extended release 24hr
150 mg PO QPM
albuterol sulfate 1 PUFF HFA aerosol inhaler
2 puff inhalation R Q4HPRN PRN (Reason: SOB)
apixaban [Eliquis] 5 MG tablet
5 mg PO BID Qty: 70 0RF
Rx Instructions:
Take 10mg twice a day for one week, then 5mg twice a day after.
tramadol 50 MG tablet
50 mg PO Q6HPRN PRN (Reason: pain) Qty: 15 0RF
ondansetron 4 MG tablet,disintegrating
4 mg PO TIDPRN PRN (Reason: nausea/vomiting) Qty: 12 0RF
cannabidiol [Epidiolex] 1 UNIT solution
1 unit PO PRN PRN (Reason: pain/anxiety)
levofloxacin [Levaquin] 500 MG tablet
500 mg PO DAILY
lorazepam [Ativan] 0.5 mg tablet
0.5 mg PO TID PRN (Reason: anxiety) Qty: 10 0RF
meclizine 25 mg tablet
25 mg PO TID PRN (Reason: dizziness) Qty: 20 0RF
hydrocodone-acetaminophen 5-300 mg tablet
1 tab PO BID PRN (Reason: Pain) Qty: 8 0RF
amoxicillin-pot clavulanate 875-125 mg tablet
1 tab PO BID 10 Days Qty: 20 0RF
ondansetron 4 mg tablet,disintegrating
4 mg PO Q8H PRN (Reason: nausea and vomiting) Qty: 10 0RF
Referrals:
Sheron Canchola PA [Family Provider, Family Practice]
Interventions
Interventions:
*Risk Screen - Suicide Last Done: 04/27/25 11:59
Discharge Date and Time
Print Language: VIET[place]ESE
[2025-04-27 16:45] VITALS: BP 148/74
[2025-04-27 17:00] VITALS: BP 148/76
== END 2025-04-27 17:39 | disposition home or self-care (01) ==
LOC: EMR 11:52
PROVIDERS: Emergency Medicine; EMERGENCY PHYSICIAN Emergency Medicine; FAMILY PHYSICIAN Physician Assistant Medical
DX: R00.2 Palpitations (principal); R42 Dizziness and giddiness; I25.10 Atherosclerotic heart disease of native coronary artery without angina pectoris; E78.00 Pure hypercholesterolemia, unspecified; I10 Essential (primary) hypertension; I25.2 Old myocardial infarction; Z95.5 Presence of coronary angioplasty implant and graft; Z87.891 Personal history of nicotine dependence; Z85.51 Personal history of malignant neoplasm of bladder
CPT/HCPCS: 99284; 80053; 84484; 85025; 85610; 93005

== ENCOUNTER → 2025-05-29 08:03 | Outpatient (REF) | payer OTHER, SELFPAY | LOC: HWRCS 08:03 | PROVIDERS: ATTENDING PHYSICIAN Internal Medicine Cardiovascular Disease; FAMILY PHYSICIAN Physician Assistant Medical | DX: R07.89 Other chest pain (principal) | CPT/HCPCS: 93306 ==

== ENCOUNTER → 2025-06-14 11:22 | Outpatient (REF) | payer OTHER, SELFPAY | LOC: HWRCS 11:22 | PROVIDERS: ATTENDING PHYSICIAN Internal Medicine Cardiovascular Disease; FAMILY PHYSICIAN Physician Assistant Medical | DX: R07.89 Other chest pain (principal); I25.119 Atherosclerotic heart disease of native coronary artery with unspecified angina pectoris | CPT/HCPCS: 78452; 93017; A9500 ==